=== PATIENT | female | born 1950 | race Caucasian/White ===

== ENCOUNTER 2018-03-02 07:58 | Day surgery (SDC) | payer MEDICARE, BC ==
[~2018-03-02 07:58] MED LIST: CHONDR SU A NA/HYALUR INTRAOC KIT (SURGICARE) ONE; EPINEPHRINE INJ/PF 1 MG/1 ML AMPULE ONE; KETOROLAC TROMETHAMINE 0.45% 4 DROP/0.4 ML DROPERETTE OS PRN; LIDOCAINE 1% INJ-PF (10 MG/ML) 30 ML SDV ONE; LIDOCAINE 1%/PHENYLEPHRINE 1.5% 1 ML VIAL ONE; TOBRAMYCIN SULFATE/DEXAMETH OPH OINTMENT 3.5 GM ONE
[2018-03-02] MEDS: CYCLOPENTOLATE 0.2%/PHENYLEPHRINE 1% OPH SOLN 2 ML OS PRN ×3 (08:30→08:50)
[2018-03-02] MEDS: TROPICAMIDE 1% OPH SOLN 3 ML OS PRN ×3 (08:30→08:50)
[2018-03-02] MEDS: BESIFLOXACIN HCL 0.6% OPH SUSP 5 ML BOTTLE OS PRN ×3 (08:31→09:21)
[2018-03-02] MEDS: TETRACAINE HCL 0.5% OPH SOLN 0.6 ML DROPERETTE OS PRN ×2 (08:31→08:59)
[2018-03-02] MEDS ORDERED: MIDAZOLAM 2 MG/2 ML INJ ONE (08:44)
[2018-03-02] MEDS ORDERED: FENTANYL CITRATE INJ/PF 100 MCG/2 ML AMPUL ONE (08:45)
[2018-03-02] MEDS ORDERED: TOBRAMYCIN SULFATE/DEXAMETH OPH OINTMENT 3.5 GM ONE (09:19)
== END 2018-03-02 10:07 | disposition home or self-care (01) ==
LOC: SC 07:58
PROVIDERS: ATTEND Ophthalmology
DX: H25.12 Age-related nuclear cataract, left eye (principal); Z79.899 Other long term (current) drug therapy; Z88.0 Allergy status to penicillin; K21.9 Gastro-esophageal reflux disease without esophagitis
CPT/HCPCS: 66984; V2788; J2250; J3490 ×2; A9270; J0171; J3010; J2370; 142

== ENCOUNTER 2018-03-16 07:55 | Day surgery (SDC) | payer MEDICARE, BC ==
[~2018-03-16 07:55] MED LIST changes: -CHONDR SU A NA/HYALUR INTRAOC KIT (SURGICARE) ONE; -EPINEPHRINE INJ/PF 1 MG/1 ML AMPULE ONE; +KETOROLAC TROMETHAMINE 0.45% 4 DROP/0.4 ML DROPERETTE OD PRN; -KETOROLAC TROMETHAMINE 0.45% 4 DROP/0.4 ML DROPERETTE OS PRN; -LIDOCAINE 1% INJ-PF (10 MG/ML) 30 ML SDV ONE; -LIDOCAINE 1%/PHENYLEPHRINE 1.5% 1 ML VIAL ONE; +TETRACAINE HCL 0.5% OPH SOLN 0.6 ML DROPERETTE OD PRN; -TOBRAMYCIN SULFATE/DEXAMETH OPH OINTMENT 3.5 GM ONE
[2018-03-16] MEDS ORDERED: EPINEPHRINE INJ/PF 1 MG/1 ML AMPULE ONE (07:57)
[2018-03-16] MEDS ORDERED: TOBRAMYCIN SULFATE/DEXAMETH OPH OINTMENT 3.5 GM ONE (07:57)
[2018-03-16] MEDS ORDERED: LIDOCAINE 1%/PHENYLEPHRINE 1.5% 1 ML VIAL ONE (07:57)
[2018-03-16] MEDS ORDERED: CHONDR SU A NA/HYALUR INTRAOC KIT (SURGICARE) ONE (07:58)
[2018-03-16] MEDS: CYCLOPENTOLATE 0.2%/PHENYLEPHRINE 1% OPH SOLN 2 ML OD PRN ×3 (08:24→08:46)
[2018-03-16] MEDS: BESIFLOXACIN HCL 0.6% OPH SUSP 5 ML BOTTLE OD PRN ×2 (08:24→08:35)
[2018-03-16] MEDS: TROPICAMIDE 1% OPH SOLN 3 ML OD PRN ×3 (08:24→08:46)
[2018-03-16] MEDS ORDERED: MIDAZOLAM 2 MG/2 ML INJ ONE ×2 (08:37→08:57)
== END 2018-03-16 09:11 | disposition home or self-care (01) ==
LOC: SC 07:55
PROVIDERS: ATTEND Ophthalmology
DX: R69 Illness, unspecified (principal)
CPT/HCPCS: J0171; J2250; J2370; J3490

== ENCOUNTER 2018-03-23 07:44 | Day surgery (SDC) | payer MEDICARE, BC ==
[~2018-03-23 07:44] MED LIST changes: -TETRACAINE HCL 0.5% OPH SOLN 0.6 ML DROPERETTE OD PRN
[2018-03-23] MEDS ORDERED: EPINEPHRINE INJ/PF 1 MG/1 ML AMPULE ONE (07:53)
[2018-03-23] MEDS ORDERED: TOBRAMYCIN SULFATE/DEXAMETH OPH OINTMENT 3.5 GM ONE (07:53)
[2018-03-23] MEDS ORDERED: LIDOCAINE 1% INJ-PF (10 MG/ML) 30 ML SDV ONE (07:54)
[2018-03-23] MEDS ORDERED: CHONDR SU A NA/HYALUR INTRAOC KIT (SURGICARE) ONE (07:54)
[2018-03-23] MEDS: CYCLOPENTOLATE 0.2%/PHENYLEPHRINE 1% OPH SOLN 2 ML OD PRN ×3 (07:59→08:27)
[2018-03-23] MEDS: TROPICAMIDE 1% OPH SOLN 3 ML OD PRN ×3 (07:59→08:27)
[2018-03-23] MEDS: BESIFLOXACIN HCL 0.6% OPH SUSP 5 ML BOTTLE OD PRN ×3 (08:00→09:02)
[2018-03-23] MEDS: TETRACAINE HCL 0.5% OPH SOLN 0.6 ML DROPERETTE OD PRN ×3 (08:01→08:31)
[2018-03-23] MEDS ORDERED: MIDAZOLAM 2 MG/2 ML INJ ONE (08:10)
[2018-03-23] MEDS ORDERED: FENTANYL CITRATE INJ/PF 100 MCG/2 ML AMPUL ONE (08:11)
== END 2018-03-23 09:38 | disposition home or self-care (01) ==
LOC: SC 07:44
PROVIDERS: ATTEND Ophthalmology
DX: H25.11 Age-related nuclear cataract, right eye (principal); Z98.42 Cataract extraction status, left eye; Z88.1 Allergy status to other antibiotic agents; Z85.828 Personal history of other malignant neoplasm of skin
CPT/HCPCS: 66984; V2788; J2250; J3490 ×3; A9270; J0171; J3010; 142